=== PATIENT | female | born 1970 | race Caucasian/White ===

== ENCOUNTER 2016-12-13 09:19 | Outpatient (CLI) | payer MEDICAID | END 2016-12-13 09:20 | disposition home or self-care (01) | DX: N92.1 Excessive and frequent menstruation with irregular cycle (principal) ==

== ENCOUNTER 2017-02-19 06:40 | Emergency (ER) | payer MEDICAID ==
[2017-02-19] MEDS ORDERED: KETOROLAC 60 MG/2 ML VIAL IM STA (07:15)
[2017-02-19] MEDS ORDERED: KETOROLAC 30 MG/ML VIAL ONE (07:21)
[2017-02-19] MEDS ORDERED: KETOROLAC 60 MG/2 ML VIAL ONE (07:22)
[2017-02-19] MEDS ORDERED: ONDANSETRON ODT 4 MG TABLET TL STA (07:25)
[2017-02-19] MEDS ORDERED: ONDANSETRON ODT 4 MG TABLET ONE (07:25)
[2017-02-19] MEDS ORDERED: HYDROmorphone 1 MG/ML SYRINGE IVP STA (07:58)
[2017-02-19] MEDS ORDERED: HYDROmorphone 1 MG/ML SYRINGE ONE (08:01)
[2017-02-19] MEDS ORDERED: IOPAMIDOL-300 100 ML VIAL IVP ONE (08:28)
[2017-02-19] MEDS ORDERED: traMADol 50 MG TABLET PO STA (09:00)
[2017-02-19] MEDS ORDERED: traMADol 50 MG TABLET PO ONE (09:15)
== END 2017-02-19 10:04 | disposition home or self-care (01) ==
DX: S22.42XA Multiple fractures of ribs, left side, initial encounter for closed fracture (principal); W01.0XXA Fall on same level from slipping, tripping and stumbling without subsequent striking against object, initial encounter; Y92.009 Unspecified place in unspecified non-institutional (private) residence as the place of occurrence of the external cause
CPT/HCPCS: 71101; 74160; 96372; 96374; 99284; 99285; A9270; J1170; Q0162; Q9967

== ENCOUNTER 2017-06-07 10:04 | Outpatient (CLI) | payer MEDICAID ==
--- NOTE | 2017-06-07 12:38 | XRAY Report ---
TWO-VIEW CHEST: 06/07/2017 CLINICAL INDICATION: Followup left rib fractures. COMPARISON: Rib films 02/19/2017. FINDINGS: Frontal and lateral views of the chest demonstrate a normal cardiac silhouette. The lungs are clear. No effusion or pneumothorax is present. Callus formation is seen at left lateral rib fr acture sites. IMPRESSION: HEALING LEFT RIB FRACTURES. NO EVIDENCE OF ACUTE CARDIOPULMONARY DISEASE. JOB #: [id number] EXT JOB #:[id number]
== END 2017-06-07 10:05 | disposition home or self-care (01) ==
LOC: DI.S 10:04
PROVIDERS: ATTEND Nurse Practitioner Family
DX: S22.42XD Multiple fractures of ribs, left side, subsequent encounter for fracture with routine healing (principal)
CPT/HCPCS: 71020

== ENCOUNTER 2019-01-07 08:00 | Outpatient (CLI) | payer MEDICAID | END 2019-01-07 23:59 | disposition home or self-care (01) | LOC: LAB.R 08:00 | PROVIDERS: ATTEND Nurse Practitioner Family | DX: R19.7 Diarrhea, unspecified (principal) | CPT/HCPCS: 81599; 83630; 87177; 87209; 87329 ==

== ENCOUNTER 2019-01-07 15:50 | Outpatient (CLI) | payer MEDICAID ==
--- NOTE | 2019-01-08 08:28 | Mammography Report ---
Reason: SCREENING MAMMO Procedure Date: 01/07/2019 Accession Number: [id number] / [id number] Procedure: ANURAG - Screening Mammo w/Baldomero CPT Code: FULL RESULT: EXAM: Screening Mammo w/Baldomero DATE: 01/07/2019 4:13 PM CLINICAL HISTORY: Screening encounter. History of nulliparity. TECHNIQUE: Bilateral CC, laterally exaggerated CC, MLO views were obtained. COMPARISON: 08/03/2016 and 12/03/2013. FINDINGS: The breasts demonstrate heterogeneously dense fibroglandular parenchyma bilaterally. There are coarse typically benign calcifications. In the right breast outer lower quadrant approximately 4.2 cm from the nipple resides an isodense well-circumscribed nodule which measures 0.5 cm on cc image 14 and MLO image 18; this possibly represents a lymph node. Further characterization by targeted right breast ultrasound is required. No suspicious masses, clustered microcalcifications, or regions of architectural distortion are identified in the left breast. IMPRESSION: Incomplete examination RECOMMENDATION: Additional evaluation of the right breast outer lower quadrant as described. BIRADS CATEGORY 0: Incomplete examination STANDARD QUALIFYING STATEMENTS: 1. This examination was not reviewed with the aid of Computer-Aided Detection (CAD). 2. A negative or benign imaging report should not delay biopsy if clinically suspicious findings are present. Consider surgical consultation if warrented. More than 5% of cancers are not identified by imaging. 3. Dense breasts may obscure an underlying neoplasm. 4. This examination was reviewed with the aid of 3D breast imaging (tomosynthesis).
== END 2019-01-07 15:51 | disposition home or self-care (01) ==
LOC: DI 15:50
DX: Z12.31 Encounter for screening mammogram for malignant neoplasm of breast (principal); R92.8 Other abnormal and inconclusive findings on diagnostic imaging of breast
CPT/HCPCS: 77063; 77067

== ENCOUNTER 2019-01-14 08:00 | Outpatient (CLI) | payer MEDICAID | END 2019-01-14 23:59 | disposition home or self-care (01) | LOC: LAB.R 08:00 | PROVIDERS: ATTEND Nurse Practitioner Family | DX: R19.7 Diarrhea, unspecified (principal) | CPT/HCPCS: 81599; 87015; 87177; 87209; 87272; 87329; 89055 ==

== ENCOUNTER 2019-02-11 09:44 | Outpatient (CLI) | payer MEDICAID ==
--- NOTE | 2019-02-11 13:19 | Mammography Report ---
Reason: ABN MAMMOGRAM Procedure Date: 02/11/2019 Accession Number: [id number] / [id number] Procedure: ANURAG - Diag Special Views Dig RT CPT Code: FULL RESULT: EXAM: Diag Special Views Dig RT DATE: 02/11/2019 10:22 AM CLINICAL HISTORY: Recall from screening exam 01/07/2019 5 mm mass/asymmetry anterior lower outer breast. No reported personal or family history of breast cancer. TECHNIQUE: (R) - Right spot magnification right CC and right MLO. Right ML 2-D/3-D mammography. COMPARISON: 01/07/2019 through 12/03/2013 FINDINGS: Right breast: Previous finding recalled from screening does not persist on additional views, consistent with summation of normal tissues. No suspicious masses, clustered microcalcifications, or regions of architectural distortion are identified. PARENCHYMAL PATTERN: (D) - The breasts demonstrate heterogeneously dense fibroglandular parenchyma bilaterally. IMPRESSION: Right breast: Previous finding of concern does not persist on additional views, consistent with summation of normal tissues. Negative. BI-RADS Category 1. Recommend return to annual screening mammography. RECOMMENDATION: (ANNUAL) - Recommend routine annual screening mammography. BI-RADS CATEGORY: (1) - Negative STANDARD QUALIFYING STATEMENTS: 1. This examination was not reviewed with the aid of Computer-Aided Detection (CAD). 2. A negative or benign imaging report should not preclude biopsy if clinically suspicious findings are present. 3. Dense breasts may obscure an underlying neoplasm. 4. This examination was reviewed with the aid of 3D breast imaging (tomosynthesis).
== END 2019-02-11 09:45 | disposition home or self-care (01) ==
LOC: DI 09:44
PROVIDERS: ATTEND Nurse Practitioner Family
DX: R92.8 Other abnormal and inconclusive findings on diagnostic imaging of breast (principal)

== ENCOUNTER 2020-08-20 07:47 | Outpatient (CLI) | payer OTHER ==
--- NOTE | 2020-08-20 16:24 | XRAY Report ---
PROCEDURE: Elbow 3 View LT INDICATIONS: L ELBOW PAIN TECHNIQUE: 3 views of the elbow were acquired. COMPARISON: None. FINDINGS: Bones: No fractures or dislocations. No suspicious bony lesions. Soft tissues: No elbow joint effusion. No suspicious soft tissue calcifications. IMPRESSION: 1. No acute bony abnormality. Reviewed by: Bladimir Parker MD on 08/20/2020 3:22 PM AKDT Approved by: Bladimir Parker MD on 08/20/2020 3:22 PM AKDT Station ID: [id number]
== END 2020-08-20 07:48 | disposition home or self-care (01) ==
LOC: DI.WCP 07:47
PROVIDERS: ATTEND Physician Assistant
DX: M77.12 Lateral epicondylitis, left elbow (principal)

== ENCOUNTER 2020-09-16 12:38 | Outpatient (CLI) | payer OTHER ==
--- NOTE | 2020-09-22 13:59 | Mammography Report ---
BILATERAL DIGITAL SCREENING MAMMOGRAM 3D/2D: 09/16/2020 CLINICAL: Routine screening. Comparison is made to exams dated: 02/11/2019 mammogram, 08/03/2016 mammogram, and 01/07/2019 mammogram - [facility]. The tissue of both breasts is heterogeneously dense. This may lower the sensitivity of mammography. No significant masses, calcifications, or other findings are seen in either breast. There has been no significant interval change. IMPRESSION: NEGATIVE There is no mammographic evidence of malignancy. A 1 year screening mammogram is recommended. This exam was interpreted at Station ID: [id number]. NOTE: For mammograms, a report in lay terms will be sent to the patient. Approximately 15% of breast malignancies will not be visualized mammographically. In the management of a palpable breast mass, a negative mammogram must not discourage biopsy of a clinically suspicious lesion. Electronically Signed By: Antonino Crawford M.D. ar/penrad:09/21/2020 16:50:55 ACR BI-RADS Category 1: Negative 3341F PARENCHYMAL PATTERN: (D) - The breast(s) demonstrate(s) heterogeneously dense fibroglandular palmer santana. BI-RADS CATEGORY: (1) - 1 RECOMMENDATION: (ANNUAL) - Recommend routine annual screening mammography. [id number] 1 year screening LATERALITY: (B)
== END 2020-09-16 12:39 | disposition home or self-care (01) ==
LOC: DI 12:38
PROVIDERS: ATTEND Registered Nurse
DX: Z12.31 Encounter for screening mammogram for malignant neoplasm of breast (principal)
CPT/HCPCS: 77063; 77067

== ENCOUNTER 2021-09-21 08:41 | Outpatient (CLI) | payer OTHER ==
--- NOTE | 2021-09-22 09:53 | Mammography Report ---
BILATERAL DIGITAL SCREENING MAMMOGRAM 3D/2D WITH EXAGGERATED CC: 09/21/2021 CLINICAL: Family history of breast cancer. Comparison is made to exams dated: 09/16/2020 mammogram, 02/11/2019 mammogram, and 01/07/2019 mammogram - [facility]. The tissue of both breasts is heterogeneously dense. This may lower the sensitivity of mammography. There is an oval low density focal asymmetry with an indistinct and circumscribed margin in the left breast at 2 o'clock posterior depth. No other significant masses, calcifications, or other findings are seen in either breast. IMPRESSION: INCOMPLETE: NEEDS ADDITIONAL IMAGING EVALUATION The oval low density focal asymmetry in the left breast is indeterminate. Mediolateral and spot comp ression views as well as additional views with possible ultrasound are recommended. This exam was interpreted at Station ID: [id number]. NOTE: For mammograms, a report in lay terms will be sent to the patient. Approximately 15% of breast malignancies will not be visualized mammographically. In the management of a palpable breast mass, a negative mammogram must not discourage biopsy of a clinically suspicious lesion. Electronically Signed By: Bladimir Parker M.D. ddp/penrad:09/21/2021 10:20:34 ACR BI-RADS Category 0: Incomplete 3340F PARENCHYMAL PATTERN: (D) - The breast(s) demonstrate(s) heterogeneously dense fibroglandular pararchie santana. BI-RADS CATEGORY: (0) - 0 Mammo and [place] [id number] Immediate follow-up LATERALITY: (B)
== END 2021-09-21 08:42 | disposition home or self-care (01) ==
LOC: DI.S 08:41
DX: Z12.31 Encounter for screening mammogram for malignant neoplasm of breast (principal); R92.8 Other abnormal and inconclusive findings on diagnostic imaging of breast; Z80.3 Family history of malignant neoplasm of breast

== ENCOUNTER 2021-10-20 08:26 | Outpatient (CLI) | payer OTHER ==
--- NOTE | 2021-10-21 11:57 | Ultrasound Report ---
LIMITED ULTRASOUND OF LEFT BREAST: 10/20/2021 CLINICAL: Patient returns today to evaluate a focal asymmetry in the left breast. Comparison is made to exams dated: 10/20/2021 mammogram, 09/21/2021 mammogram, 09/16/2020 mammogram, 02/11/2019 mammogram, 01/07/2019 mammogram, and 08/03/2016 mammogram - [facility]. Ultrasound of the left breast 1-3 o'clock region was performed. Wharton scale images of the real-time examination were reviewed. There is a benign 1 cm oval cyst in the left breast at 4 o'clock posterior depth. This oval cyst is anechoic with posterior acoustic enhancement. Color flow imaging demonstrates that there is no vascu larity present. IMPRESSION: BENIGN There is no sonographic evidence of malignancy. The 1 cm oval cyst in the left breast is consistent with a simple cyst and is benign. A 1 year screening mammogram is recommended. This exam was interpreted at Station ID: [id number]. Electronically Signed By: Patrice Hawkins M.D., jr/amairani:10/20/2021 09:43:21 Ultrasound BI-RADS: 2 Benign BI-RADS CATEGORY: (2) - 2 RECOMMENDATION: (ANNUAL) - Recommend routine annual screening mammography. [id number] 1 year screening LATERALITY: (B)
--- NOTE | 2021-10-21 11:57 | Mammography Report ---
UNILATERAL LEFT DIGITAL DIAGNOSTIC MAMMOGRAM 3D/2D: 10/20/2021 CLINICAL: Patient returns today to evaluate a focal asymmetry in the left breast. Comparison is made to exams dated: 09/21/2021 mammogram, 09/16/2020 mammogram, 02/11/2019 mammogram, 12/15 mammogram, 08/03/2016 mammogram, and 12/03/2013 mammogram - [facility]. The t issue of left breast is heterogeneously dense. This may lower the sensitivity of mammography. There is an oval low density focal asymmetry with an indistinct and circumscribed margin in the left breast at 4 o'clock posterior depth. This is not significantly changed. No other significant masses or calcifications are seen in the breast. IMPRESSION: INCOMPLETE: NEEDS ADDITIONAL IMAGING EVALUATION The oval low density focal asymmetry in the left breast is indeterminate. An ultrasound is recommend ed. This exam was interpreted at Station ID: [id number]. NOTE: For mammograms, a report in lay terms will be sent to the patient. Approximately 15% of breast malignancies will not be visualized mammographically. In the management of a palpable breast mass, a negative mammogram must not discourage biopsy of a clinically suspicious lesion. Electronically Signed By: Patrice Hawkins M.D., jr/amairani:10/20/2021 09:41:13 ACR BI-RADS Category 0: Incomplete 3340F PARENCHYMAL PATTERN: (D) - The breast(s) demonstrate(s) heterogeneously dense fibroglandular palmer santana. BI-RADS CATEGORY: (0) - 0 Ultrasound [id number] Immediate follow-up LATERALITY: (B)
== END 2021-10-20 08:27 | disposition home or self-care (01) ==
LOC: DI 08:26
PROVIDERS: ATTEND Registered Nurse
DX: N60.02 Solitary cyst of left breast (principal)

== ENCOUNTER 2022-12-05 10:52 | Outpatient (CLI) | payer OTHER ==
--- NOTE | 2022-12-06 15:37 | Mammography Report ---
BILATERAL DIGITAL SCREENING MAMMOGRAM 3D/2D WITH EXAGGERATED CC: 12/05/2022 CLINICAL: Routine screening. Family history of breast cancer. Comparison is made to exams dated: 10/20/2021 ultrasound, 10/20/2021 mammogram, 09/21/2021 mammogram, 11/16/2019 mammogram, and 02/11/2019 mammogram - [facility]. Both breasts are heterogeneously dense, which may obscure small masses (category c / 51-75% glandular tissue). There is a benign cyst in the left breast. No significant masses, calcifications, or other findings are seen in either breast. There has been no significant interval change. IMPRESSION: BENIGN There is no mammographic evidence of malignancy. A 1 year screening mammogram is recommended. Based on Tyrer-Cuzick model (a risk assessment model), the patient's lifetime risk is 20.8% and her 1 0 year risk is 5.4%. If a patient has an elevated risk, a more comprehensive evaluation should be con sidered and/or a referral to a genetic counselor. The [place] [employer], [employer], and NCCN Guidelines advise the consideration of Breast MRI as an adjunct to screening mammog ritesh in patients whose "Lifetime risk to develop breast cancer" is 20% or higher. This exam was interpreted at Station ID: [id number]. NOTE: For mammograms, a report in lay terms will be sent to the patient. Approximately 15% of breast malignancies will not be visualized mammographically. In the management of a palpable breast mass, a negative mammogram must not discourage biopsy of a clinically suspicious lesion. Electronically Signed By: Tapan matthew/amairani:12/05/2022 17:09:42 ACR BI-RADS Category 2: Benign Finding(s) 3342F PARENCHYMAL PATTERN: (D) - The breast(s) demonstrate(s) heterogeneously dense fibroglandular parvijayy max. BI-RADS CATEGORY: (2) - 2 RECOMMENDATION: (ANNUAL) - Recommend routine annual screening mammography. [id number] 1 year screening LATERALITY: (B)
== END 2022-12-05 10:53 | disposition home or self-care (01) ==
LOC: DI.S 10:52
PROVIDERS: ATTEND Registered Nurse
DX: Z12.31 Encounter for screening mammogram for malignant neoplasm of breast (principal); Z80.3 Family history of malignant neoplasm of breast

== ENCOUNTER 2024-01-02 07:49 | Outpatient (CLI) | payer OTHER ==
--- NOTE | 2024-01-03 09:30 | Mammography Report ---
BILATERAL DIGITAL SCREENING MAMMOGRAM 3D/2D: 01/02/2024 CLINICAL: Routine screening. Family history of breast cancer. Comparison is made to exams dated: 12/05/2022 mammogram, 10/20/2021 mammogram, 09/21/2021 mammogram, mammogram, 02/11/2019 mammogram, and 01/07/2019 mammogram - [facility]. Both breasts are heterogeneously dense, which may obscure small masses (category c / 51-75% glandular tissue). No significant masses, calcifications, or other findings are seen in either breast. There has been no significant interval change. IMPRESSION: NEGATIVE There is no mammographic evidence of malignancy. A 1 year screening mammogram is recommended. Based on Tyrer-Cuzick model (a risk assessment model), the patient's lifetime risk is 20.8% and her 1 0 year risk is 5.6%. If a patient has an elevated risk, a more comprehensive evaluation should be con sidered and/or a referral to a genetic counselor. The [place] [employer], [place] [employer], and NCCN Guidelines advise the consideration of Breast MRI as an adjunct to screening mammog ritesh in patients whose "Lifetime risk to develop breast cancer" is 20% or higher. This exam was interpreted at Station ID: [id number]. NOTE: For mammograms, a report in lay terms will be sent to the patient. Approximately 15% of breast malignancies will not be visualized mammographically. In the management of a palpable breast mass, a negative mammogram must not discourage biopsy of a clinically suspicious lesion. Electronically Signed By: Mallory Girard M.D., PH.D eb/penrad:01/02/2024 17:51:54 letter sent: No_Letter ACR BI-RADS Category 1: Negative 3341F PARENCHYMAL PATTERN: (D) - The breast(s) demonstrate(s) heterogeneously dense fibroglandular pararchie santana. BI-RADS CATEGORY: (1) - 1 Mammogram [id number] 1 year screening LATERALITY: (B)
== END 2024-01-02 07:50 | disposition home or self-care (01) ==
LOC: DI.S 07:49
PROVIDERS: ATTEND Registered Nurse
DX: Z12.31 Encounter for screening mammogram for malignant neoplasm of breast (principal); Z80.3 Family history of malignant neoplasm of breast; R92.333 Mammographic heterogeneous density, bilateral breasts